=== PATIENT | female | born 1935 | race Caucasian/White ===

== ENCOUNTER 2017-04-09 18:16 | Inpatient (IN) | payer OTHER ==
[~2017-04-09] VITALS: Ht 157.5 cm; Wt 55.2 kg
[2017-04-09] VITALS: BP 116/62
--- NOTE | ~2017-04-09 | HC ---
[facility] [place] [address] CONSULTATION Name: MIGUEL ALFORD Room #: 239-P ADM IN M.R.#: [id number] Admission: 04/09/17 Attend Phys: Violeta Villalba Discharge: Date of : 34 Report #: [id number] THIS REPORT FOR: //name// CC: Chrystal Tai MD DATE OF SERVICE: 04/14/2017 REFERRING PROVIDER: Violeta Villalba MD REASON FOR CONSULTATION: Hypoxemia. CHIEF COMPLAINT: Weakness and altered mental status. HISTORY OF PRESENT ILLNESS: Our group was asked to evaluate the patient in consultation while hospitalized at [facility]. The patient was admitted on April 09, presented to the emergency department, apparently presented to her primary care provider for evaluation some generalized problems and was noted to have some worsening renal function and was subsequently sent to the emergency department. A chest x-ray revealed a right upper lobe infiltrate and some hypoxemia. The patient has subsequently been on Levaquin and aerosol treatments and has had some steady decline over the last 24 hours. The patient has a history of cerebrovascular accident with right-sided weakness and expressive aphasia, in fact often speaking only in Czech at times, has been having more confusion and left-sided neglect. She has a coarse cough according to respiratory therapy, she is having difficulty clearing the secretions. No active fevers or chills. The patient is sitting up in chair during my discussion with the daughter. Daughter provides a reasonable history. The patient is unable to communicate well, although did respond to some verbal commands during the exam. ALLERGIES: HYDROXYZINE, LABETALOL, and LORAZEPAM. PAST MEDICAL HISTORY: 1. 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 2. Hypertension. 3. Chronic renal insufficiency. 4. Hyperlipidemia. 5. Diabetes mellitus type 2. OUTPATIENT MEDICATIONS: Included Avapro, Lipitor, hydrochlorothiazide, diltiazem, hydralazine, Protonix, and insulin. [address] [address] CONSULTATION Name: MIGUEL ALFORD Room #: 239-P [facility]..#: [id number] Admission: 04/09/17 Attend Phys: Violeta Villalba Discharge: Date of : 34 Report #: [id number] CURRENT INPATIENT MEDICATIONS: 1. Levofloxacin. 2. Furosemide. 3. DuoNebs q.i.d. 4. Hydralazine 10 mg twice daily, atorvastatin 20 mg daily, Colace, Pepcid, Lopressor p.r.n., and Zosyn. SOCIAL HISTORY: The patient is an ex-smoker, quitting about 12 years ago. Lives with the daughter, disabled and elderly and disabled due to prior stroke as mentioned. FAMILY HISTORY: Unobtainable from the patient. REVIEW OF SYSTEMS: Otherwise, unobtainable from the patient due to current status. PHYSICAL EXAMINATION: VITAL SIGNS: Temperature max 37.6, temperature current 36.8, pulse 90, respiratory rate 18, blood pressure 134/46, oxygen saturation 95% on 13 liters nasal cannula. GENERAL: This is an elderly woman, in no distress, not conversant, does respond to some requests. ENT: Clear oropharynx. No thrush. NECK: Supple, no lymphadenopathy. LUNGS: Coarse, right-sided breath sounds, predominantly on the right upper, diminished bases, occasional expiratory rhonchi noted. CARDIOVASCULAR: Heart was regular. 2/6 murmur noted. ABDOMEN: Soft, nontender, no masses. EXTREMITIES: With some 1+ edema. They are warm with 2+ pulses. LABORATORY DATA: Arterial blood gas on 13 liters revealed pH 7.47, pCO2 of 30, pO2 of 70, bicarbonate 22. ProBNP is 18,550. Troponin is negative. Lactate 1.9. CBC and chemistry profile pending today. Most recent white blood cell count was 15,000, hemoglobin of 8, hematocrit 25, and platelet count 280. Yesterday, sodium 142, potassium 3.2, chloride 108, bicarbonate 20, BUN 52, creatinine 2.9, glucose 205, albumin is 2.0. Chest x-ray reveals persistent right upper lobe infiltrate, left basilar atelectasis and new right pleural effusion. IMPRESSION: 1. Acute hypoxemic respiratory failure, worsening status over the last 24 hours, suspect much of this is related to some pulmonary edema, pleural effusion, perhaps worsening pneumonia with poor airway clearance in addition to possible pulmonary embolism. Review of medications does not show that the patient has been anticoagulated with prophylactic heparin or enoxaparin. 2. Acute on chronic renal failure. [facility] [address] [place] [address] CONSULTATION Name: MIGUEL ALFORD Room #: 239-P [facility] IN M.R.#: [id number] Admission: 04/09/17 Attend Phys: Violeta Villalba Discharge: Date of : 34 Report #: [id number] 3. Pleural effusion. 4. Community-acquired pneumonia. 5. Prior cerebrovascular accident. 6. Altered mental status. The patient's mental status apparently is worse compared to 24 hours prior. SUGGEST: 1. CT head and chest without contrast. 2. Consider ventilation perfusion scan. 3. Lower extremity venous Dopplers. 4. Echo. 5. Diuresis. 6. ICU care. 7. Consider right thoracentesis. 8. Consider broadening antimicrobial coverage, we will add azithromycin and vancomycin. 9. Consider ID consult. 10. Discussed with daughter may need more aggressive care including intubation or noninvasive positive pressure ventilation as the patient is a full code at this time. 11. N.p.o. for now, but continue with speech therapy efforts. 12. More recommendations to follow. Discussed with family and Dr. Villalba. Total critical care time was 45 minutes, not including any procedures to this point. By: [id number] Clifford Castanon MD /nt
--- NOTE | ~2017-04-09 | HC ---
[facility] [place] [address] CONSULTATION Name: MIGUEL ALFORD Room #: 239-P [facility] IN ..#: [id number] Admission: 04/09/17 Attend Phys: Violeta Villalba Discharge: Date of : 34 Report #: [id number] THIS REPORT FOR: //name// CC: Chrystal Villalba DATE OF SERVICE: 04/14/2017 HISTORY OF PRESENT ILLNESS: This is an 81-year-old white female with polycystic kidney disease, with chronic kidney disease stage IV, hypertension, diabetes mellitus, prior CVA with residual mild aphasia and right hemiparesis from 12 years ago. She was admitted with worsening renal failure, had a fall with some right hip pain, but x-rays were negative. She is noted to have acute respiratory failure, hypoxic aspiration versus congestive heart failure. She has community-acquired pneumonia of right upper lobe. There is concern with her swallowing and she has been downgraded down to n.p.o. and with the decline in function, she is actually being transferred down to the Progressive Care Unit/CCU. I am seeing her in rehabilitation medicine consultation. PAST MEDICAL HISTORY: Includes the prior CVA with mild aphasia and right hemiparesis 12 years ago. Premorbid quad cane ambulator. Also includes diabetes mellitus, hyperlipidemia, GERD, hypertension, chronic kidney disease stage IV. HABITS: No history of tobacco abuse or alcohol abuse. MEDICATIONS: Please see the full medication listing. ALLERGIES: Hydroxyzine, labetalol, lorazepam. SOCIAL HISTORY: Lives in a house. There is a ramp. Premorbid community ambulator with a quad cane, lives with her daughter and son-in-law. REVIEW OF SYSTEMS: Somewhat limited. No complaints currently of abdominal discomfort or chest pain. She does have some shortness of breath. PHYSICAL EXAMINATION: GENERAL: An 81-year-old white female in no obvious distress. VITAL SIGNS: Temperature 98.3, pulse 91, respirations 18, blood pressure 134/46. NEUROLOGIC: She does have residual from her old stroke with right hemiparesis. Appears to have right visual field preference. She does have evidence of spasticity on the right side, upper and lower extremity. She is currently on 13 liters nasal cannula. There is no focal calf swelling. I did not assess her activity level at this time. [address] [address] CONSULTATION Name: MIGUEL ALFORD Room #: [address] [place] [address] IN M.R.#: [id number] Admission: 04/09/17 Attend Phys: Violeta Villalba Discharge: Date of : 34 Report #: [id number] ASSESSMENT: An 81-year-old white female with the following problem list: 1. Cerebrovascular accident with worsening of her status. She has dysphagia and is currently n.p.o. with her functional decline. 2. Premorbid right-sided spastic hemiparesis. 3. Acute respiratory failure, hypoxic, aspiration versus congestive heart failure. 4. Community-acquired pneumonia, right upper lobe. 5. Right hip pain post fall with no fractures. 6. Chronic kidney disease stage IV. 7. Diabetes mellitus. 8. Hypertension. 9. Hyperlipidemia. PLAN: The patient is currently being transferred down to the progressive care unit. We will follow along with you regarding her rehab therapy issues. She is requiring much more oxygen with her pneumonia. We will be glad to follow along with you regarding her rehab therapy needs. <ELECTRONICALLY SIGNED> By: Atif Bernal MD 04/15/17 1414 1210 0224 Atif Bernal MD /[facility]
--- NOTE | ~2017-04-09 | EKG ---
[address] [address] ELECTROCARDIOGRAM REPORT Name: MIGUEL ALFORD Room #: 239-P ADM IN M.R.#: [id number] Admission: 04/09/17 Attend Phys: Violeta Villalba Discharge: Date of : 34 Report #: [id number] THIS REPORT FOR: //name// [facility] Test Date: 2017-04-15 Test Time: 08:27:02 Pat Name: MIGUEL ALFORD Department: Room: 239 P Gender: F Truck Terminal Manager: daphne : 1935 Requested By: Vianney Najera Order Number: [id number] MD: Theodore Coelho Measurements Intervals [place] Rate: 89 P: [place]: QRS: 58 QRSD: 87 T: 59 QT: 367 QTc: 447 Interpretive Statements Atrial fibrillation Ventricular premature complex Consider left ventricular hypertrophy Compared to ECG 04/14/2017 11:39:10 Ventricular premature complex(es) now present Sinus tachycardia no longer present Electronically Signed On 04-15-2017 21:09:39 MACHINE FELLER by Theodore Coelho [email or web address] <ELECTRONICALLY SIGNED> By: Theodore Coelho MD 04/15/17 2109 6 6 Theodore Coelho MD /EPI
--- NOTE | ~2017-04-09 | HC ---
[facility] [place] [address] CONSULTATION Name: ROCÍOMIGUEL Room #: 239-P [facility] IN M.R.#: [id number] Admission: 04/09/17 Attend Phys: Violeta Villalba Discharge: 04/17/17 Date of : 34 Report #: [id number] THIS REPORT FOR: //name// CC: Chrystal Villalba DATE OF SERVICE: 04/14/2017 REASON FOR CONSULTATION: Elevated creatinine. HISTORY OF PRESENT ILLNESS: This is an 81-year-old female who was admitted 5 days ago. She originally presented based upon some abnormal lab values, but had fallen and had pain in her hip, but then ended up was found to have a right-sided pulmonary infiltrate. That pulmonary infiltrate has worsened and she now has a very rachana dense pneumonia on that right lung. She was moved to the Intensive Care Unit earlier today. Of note, her creatinine level on presentation was at 3.1, it has been at 2.9-3.1 ever since. The patient is in the ICU at this time. There is bit of a language barrier. She has a son and [id number] here who provide some information. There were also some outpatient notes available. The patient had seen Dr. Ross at [facility] in September of this year for work up. That workup included a renal ultrasound, which showed at least 20 cm kidneys bilaterally with extensive cystic replacement of normal renal parenchyma consistent with autosomal dominant polycystic kidney disease. He also documented progressively rising creatinine levels a year ago, running in the low 2 range and now more recently in the 2.6 range over the summer and she is up to 2.8 and 3.1 range during this hospitalization. She has a history of hypertension and prior to admission was on some irbesartan, but that was stopped. She is also on usually a little bit of furosemide as well as some hydralazine and diltiazem. She has had some atrial fib and hence the diltiazem. Blood pressures have been moderate during this time. She has moved into the ICU because she was a bit more obtunded and had a more dense pneumonia. 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 She also has a history of prior coronary artery disease, peripheral vascular disease with carotid involvement. She has had a previous CVA, which I think was in 2005 with some right hemiparesis and some aphasia problems. It is interesting that her son notes that she is a y[place] of [place] and had lived in this country for decades and spoke Nigerien well, but after her stroke, she is losing more and more of her ability to speak Nigerien, although she still does speak [place]. She understands both Nigerien and [place]. She also has some type 2 diabetes. MEDICATIONS ON ADMISSION: Again include irbesartan, atorvastatin, hydrochlorothiazide, diltiazem, hydralazine, pantoprazole, calcium, potassium, [address] [address] CONSULTATION Name: MIGUEL ALFORD Room #: 239-P [facility] IN M.R.#: [id number] Admission: 04/09/17 Attend Phys: Violeta Villalba Discharge: 04/17/17 Date of : 34 Report #: [id number] furosemide, and Lantus. At this time, she has been placed on antibiotics in the form of vancomycin as well as piperacillin and tazobactam, hydralazine at 10 mg b.i.d., atorvastatin 20 mg daily, DuoNeb inhaler, famotidine 10 mg b.i.d., metoprolol 5 mg q. 6 hours IV for control of her atrial fib, multiple p.r.n. medications. She no longer is on the angiotensin receptor idris. ALLERGIES: Listed to HYDROXYZINE, LABETALOL, LORAZEPAM. FAMILY HISTORY: Her son is here and is unable to tell me anymore about polycystic kidney disease in the family as he is not aware. SOCIAL HISTORY: The patient is . She lives in [place], [place]. She lives with her daughter and the daughter's family. Again, she immigrated from [place] decades ago. REVIEW OF SYSTEMS: At this time, is lethargic. She seems somewhat uncomfortable and restless. She has been somewhat dyspneic. Difficult to tell as she is not very verbal to figure out what else are her symptoms are at this time. The son states that on a normal day she is able to ambulate, she is able to take care of some of her activities of daily living including bathroom needs. She will feed herself. Also, the daughter helps with medications and some of the more complex tasks. Normally, does not have dyspnea or chest pain, nausea or vomiting. PHYSICAL EXAMINATION: GENERAL: Elderly-appearing female seen in the Intensive Care Unit. She is awake, although lethargic. VITAL SIGNS: Blood pressure 148/56, heart rate 94 and irregular, temperature 98.4, oxygen saturation 95%. HEENT: Shows pupils are equal and reactive. Sclerae nonicteric. Oral mucosa is dry. NECK: Supple. No jugular veinous distention, no adenopathy. CHEST: Shows rales and rhonchi bilaterally, fairly dense. Positioning is difficult to get a really thorough exam as far as complete location of that. HEART: An irregularly irregular rhythm with distant heart tones. ABDOMEN: Has a few bowel sounds present. Abdomen is soft. Again positioning is a problem, but I can certainly palpate the left kidney, possibly the right kidney. I do not think the liver is particularly enlarged. EXTREMITIES: Show no peripheral edema, in fact she has mildly decreased skin turgor in her legs. NEUROLOGIC: She is responsive, but mildly obtunded. LABORATORY DATA: From today, sodium 141, potassium 3.7, chloride 107, bicarbonate 19, BUN 60, creatinine 3.1, glucose 265, calcium 8.8. Troponin less than 0.04. White count 11.1, which is down from 20.9 on admission; hemoglobin 8.8; hematocrit 26.8; platelets 340,000. From admission, Urinalysis, specific [facility] [address] [place] [address] CONSULTATION Name: MIGUEL ALFORD Room #: 239-P [facility].#: [id number] Admission: 04/09/17 Attend Phys: Violeta Villalba Discharge: 04/17/17 Date of : 34 Report #: [id number] gravity 1.020, pH 5.5, 2+ protein, trace blood. Negative dipstick from today. Blood gas pH 7.47, pCO2 of 30, pO2 of 76.8. Lactate 1.94. I reviewed her chest x-ray from today, which shows a very dense right-sided infiltrate. ASSESSMENT: 1. Right-sided pneumonia, on broad spectrum antibiotics, bronchodilators, pulmonary toilet, and supplemental oxygen. She is not hypotensive nor shocky at this time. She has continued the intensive pulmonary care. 2. Autosomal dominant polycystic kidney disease. She had a recent renal ultrasound consistent with this diagnosis. Kidneys are enlarged and palpable. She is not able to communicate much with me on this, but I have spoken with the son and the [id number] at the bedside and discussed the diagnosis of autosomal dominant polycystic kidney disease, the etiology, its progression, and some of the inheritance pattern as it is certainly important for him to understand that. At this point, her polycystic kidney disease is not expected to play a substantial role in what is going on with her pneumonia or other related problems. Her renal function certainly is not great, but it is not changing rapidly. In addition, I would note she has had previous cerebral aneurysm years ago, again with increased risk of that related to her plus cyst kidneys. 3. Chronic kidney disease stage 4. This has been generally progressive over the last few years. She is at very advanced stage on autosomal dominant polycystic kidney disease and hence the worsening trend on her creatinine. At this point, she is actually dry on her volume. Electrolytes were controlled. She needs care of her pneumonia. She does not need ongoing diuresis currently. We will back off her diuretics and follow along in her care. I do not expect her creatinine to improve much. 4. Hypertension. She is currently on an IV beta idris. Once she is able to take orally, we will get her back on her angiotensin receptor idris as the GEORGIE inhibitors and ARBs are the drugs of choice for treatment of hypertension with polycystic kidney disease. 5. Atrial fibrillation, currently rate controlled. 6. Diabetes mellitus. Sugars have been high. She needs additional insulin to get that controlled. 7. Anemia. We will follow along with that. Certainly it is a problem with her severe pneumonia. PLAN: 1. I will stop her diuretics at this time. 2. Continue her IV antibiotics. 3. Continue pulmonary toilet. 4. Follow up on her labs. [facility] [address] [place] [address] CONSULTATION Name: MIGUEL ALFORD Room #: 239-P [facility] IN M.R.#: [id number] Admission: 04/09/17 Attend Phys: Violeta Villalba Discharge: 04/17/17 Date of : 34 Report #: [id number] 5. Differential resumption of her angiotensin receptor idris. 6. We will follow along the care of this patient. <ELECTRONICALLY SIGNED> By: Holden Galaviz MD 04/18/17 1046 1802 212 Celso Cordova MD /nt
--- NOTE | ~2017-04-09 | HC ---
[facility] [place] [address] CONSULTATION Name: MIGUEL ALFORD Room #: 239-P [facility] IN M.R.#: [id number] Admission: 04/09/17 Attend Phys: Violeta Villalba Discharge: 04/17/17 Date of : 34 Report #: [id number] THIS REPORT FOR: //name// CC: Chrystal Villalba ATTENDING PHYSICIAN: Violeta Villalba MD REASON FOR CONSULTATION: Pneumonia. HISTORY OF PRESENT ILLNESS: This is an 81-year-old white woman hospitalized at [facility] on April 09, with respiratory failure, diagnosed to have right-sided pneumonia, currently on treatment with vancomycin and Zosyn. The patient is unaroused somehow. The patient's family at bedside, trying to decide how to approach her end of life care. The patient is not arousable, family provides some information regarding her past medical history. DRUG ALLERGIES: LORAZEPAM, LABETALOL, and HYDROXYZINE. PAST MEDICAL HISTORY: CVA, right-sided weakness, hypertension, chronic kidney disease, dyslipidemia, diabetes mellitus type 2, right-sided pneumonia, and respiratory failure, on BiPAP. MEDICATIONS: The patient is currently on dextrose at 1000 mL IV every 12 hours, morphine sulfate 2 mg IV p.r.n., vancomycin 500 mg IV daily, enoxaparin 60 mg subQ daily, hydralazine 10 mg IV b.i.d., insulin lispro per sliding scale, docusate at bedtime, atorvastatin 20 mg at bedtime, Atrovent and albuterol inhalation treatments every 4 hours, Zosyn 2.25 grams IV every 6 hours, metoprolol tartrate IV 5 mg as needed, ondansetron, p.r.n., glucose glucagon p.r.n., and acetaminophen p.r.n. FAMILY HISTORY: See H and P, old records. REVIEW OF SYSTEMS: Unable to obtain. PHYSICAL EXAMINATION: GENERAL: Elderly, chronically and acutely ill, unresponsive woman. VITAL SIGNS: Temperature 97.6, pulse 89-157, respirations 21-36, BP 122/92, the patient is on BiPAP, FiO2 100%, and saturations 100%. HEENMT: Not quite able to examine because of BiPAP. NECK: Supple. LUNGS: Crackles right lung tee. HEART: S1, S2. No gallop. ABDOMEN: Soft, no masses or megaly. PELVIC: Deferred. RECTAL: Deferred. EXTREMITIES: No clubbing or cyanosis. [facility] [address] [place] [address] CONSULTATION Name: MIGUEL ALFORD Room #: [facility].#: [id number] Admission: 04/09/17 Attend Phys: Violeta Villalba Discharge: 04/17/17 Date of : 34 Report #: [id number] NEUROLOGIC: Unable to evaluate. LABORATORY DATA: Cultures remain negative at the time of this dictation. Sodium 153, potassium 3.9, CO2 of 20, BUN 70, creatinine 3.4, glucose 241. Albumin 1.9. WBC 20,000, hemoglobin 7.9 g/dL, platelets 333,000. MRSA screen negative. Urinalysis revealed pyuria and bacteriuria. The urine culture revealed E. coli sensitive to all tested antibiotics. ABGs yesterday revealed pH 7.49, pCO2 25, pO2 71, bicarbonate 19, lactate 1.57. These set of gases is on nasal O2, 13 liters per minute. RADIOLOGY EVALUATION: The chest x-ray revealed atelectasis, pneumonia, right lung; vascular congestion. ASSESSMENT: 1. Extensive right-sided pneumonia, undetermined organism. 2. Respiratory failure, on BiPAP. 3. Chronic kidney disease. 4. History of cerebrovascular accident. SUGGESTIONS AND RECOMMENDATIONS: First of all, we have to see what the family wishes regarding end of life care for this patient might be. I suspect they are leaning the reaction of comfort care. For time being, recommend continuation of treatment with vancomycin and Zosyn, but survival of this person is doubtful. Dr. Villalba, thank you for requesting my suggestions in the care of your patient. <ELECTRONICALLY SIGNED> By: Douglas Coelho MD 04/17/17 1021 1041 1705 Douglas Coelho MD /nt
--- NOTE | ~2017-04-09 | 2DMMODE ---
[facility] [address] [place] [address] 2 D/M-MODE ECHOCARDIOGRAM Name: MIGUEL ALFORD Room #: 239-P ADM IN .R.#: [id number] Admission: 04/09/17 Attend Phys: Violeta Weber Discharge: Date of : 33 Date of Service: 04/14/17 1539 Report #: [id number] THIS REPORT FOR: //name// APPROVED REPORT Study performed: 04/14/2017 13:31:34 EXAM: Comprehensive 2D, Doppler, and color-flow Echocardiogram Patient Location: ICU Room #: 239 Status: routine BSA: 1.59 HR: 91 bpm BP: 134/46 mmHg Rhythm: Irregular. Other Information Study Quality: Good/no patient cooperation. Indications Respiratory failure, CHF. Hx: CAD, HTN, HLP, DM, CVA 2D Dimensions RVDd: 33.56 mm LVEF(%): 48.22 (>50%) IVSd: 13.12 (7-11mm) LVOT Diam: 19.02 (18-24mm) LVDd: 37.50 mm PWd: 12.14 (7-11mm) Ascending Ao: 33.18 (22-36mm) LVDs: 28.58 (25-40mm) Aortic Root: 30.87 mm Pitts's LVEF: 48.22 % Volumes Left Atrial Volume (Systole) Single Plane 4CH: 77.35 mL Single Plane 2CH: 75.36 mL LA ESV Index: 52.00 mL/m2 Aortic Valve AoV Peak Kobe.: 3.59 m/s AO Peak Gr.: 51.61 mmHg LVOT Max P.25 mmHg AO Mean Gr.: 29.68 mmHg AO V2 Mean: 2.66 m/s LVOT Max V: 1.43 m/s AO V2 VTI: 79.60 cm BETHEL Vmax: 1.13 cm2 Mitral Valve [facility] [place] [address] 2 D/M-MODE ECHOCARDIOGRAM Name: MIGUEL ALFORD Room #: 239-P [facility] IN ..#: [id number] Admission: 04/09/17 Attend Phys: Violeta Weber Discharge: Date of : 33 Date of Service: 04/14/17 1539 Report #: [id number] E/A Ratio: 1.0 MV Decel. Time: 185.30 ms MV E Max Kobe.: 1.58 m/s MV A Kobe.: 1.55 m/s MV PHT: 53.74 ms IVRT: 73.82 ms Pulmonary Valve PV Peak Kobe.: 1.56 m/s PV Peak Gr.: 9.79 mmHg Pulmonary Vein P Vein S: 0.80 m/s P Vein D: 0.60 m/s P Vein S/D Ratio: 1.33 Tricuspid Valve TR Peak Kobe.: 3.57 m/s RAP Estimate: 10.00 mmHg TR Peak Gr.: 51.12 mmHg PA Pressure: 61.00 mmHg Left Ventricle The left ventricle is normal size. Mild concentric left ventricular hypertrophy. Left ventricular systolic function is mildly decreased. Hypokinesis of distal septum, distal inferior wall, and apex. LVEF is 45%. This study is not technically sufficient to allow evaluation of the LV diastolic function due to arrhythmia. Right Ventricle The right ventricle is normal size. The right ventricular systolic function is normal. Atria Left atrium is dilated. Right atrium is at the upper limits of normal. Aortic Valve Aortic valve is moderately calcified. Trace aortic regurgitation. There is moderate valvular aortic stenosis. Calculated aortic valve area is 1.2 cm2 with an average maximum pressure gradient of 48 mmHg and average mean pressure gradient of 27 mmHg. Mitral Valve Mitral valve leaflets are thickened. Moderate mitral annular calcification. Moderate mitral regurgitation. No evidence of mitral valve stenosis. [facility] [address] [place] [address] 2 D/M-MODE ECHOCARDIOGRAM Name: MIGUEL ALFORD Room #: 239-P [facility] IN .R.#: [id number] Admission: 04/09/17 Attend Phys: Violeta Weber Discharge: Date of : 33 Date of Service: 04/14/17 1539 Report #: [id number] Tricuspid Valve The tricuspid valve is normal in structure. Mild tricuspid regurgitation. Estimated PAP is 60mmHg. Pulmonic Valve The pulmonary valve is normal in structure. Trace pulmonic regurgitation. Great Vessels The aortic root is normal in size. The ascending aorta is normal in size. IVC is dilated and collapses <50% with inspiration. Pericardium There is no pericardial effusion. <Conclusion> Left ventricular systolic function is mildly decreased. Hypokinesis of distal septum, distal inferior wall, and apex. LVEF is 45%. Left atrium is dilated. Aortic valve is moderately calcified. There is moderate valvular aortic stenosis. Calculated aortic valve area is 1.2 cm2; maximum pressure gradient of 48 mmHg, mean pressure gradient of 27 mmHg. Mitral valve leaflets are thickened. Moderate mitral annular calcification. Moderate mitral regurgitation. Pulmonary artery pressure of 60mmHg There is no pericardial effusion. <ELECTRONICALLY SIGNED> By: Chase Adhikari MD, FACC 04/14/17 1539 1539 1539 Chase Adhikari MD, FACC /INF
--- NOTE | ~2017-04-09 | EKG ---
[address] [address] ELECTROCARDIOGRAM REPORT Name: ROCÍOMIGUEL Quiana Room #: 239-P ADM IN M.R.#: [id number] Admission: 04/09/17 Attend Phys: Violeta Villalba Discharge: Date of : 33 Report #: [id number] THIS REPORT FOR: //name// [facility] Test Date: 2017-04-14 Test Time: 11:39:10 Pat Name: MIGUEL ALFORD Department: Room: 239 Gender: F Education Adviser: Esther SORIANO : 1935 Requested By: Violeta Villalba Order Number: [id number] MD: Theodore Coelho Measurements Intervals [place] Rate: 103 P: 115 HI: 182 QRS: 32 QRSD: 86 T: 62 QT: 345 QTc: 452 Interpretive Statements Sinus tachycardia Left ventricular hypertrophy Compared to ECG 10/22/2005 15:07:50 Left ventricular hypertrophy now present Sinus rhythm no longer present ST (T wave) deviation still present Myocardial infarct finding still present Electronically Signed On 04-14-2017 18:25:04 SHIFTMAN by Theodore Coelho [email or web address] <ELECTRONICALLY SIGNED> By: Theodore Coelho MD 04/14/17 1825 1139 1139 Theodore Coelho MD /EPI
[~2017-04-09 18:16] MED LIST: ACTONEL 150 MG150 MG PO; AVAPRO300 MG PO; DILTIAZEM ER360 MG PO; HYDROCHLOROTHIA25 M1 PO; LIPITOR20 MG PO; LOPRESSOR 50 MG50 M1 PO
[2017-04-09 18:17] VITALS: BP 138/44
[2017-04-09] MEDS ORDERED: PROTONIX40 M1 PO (18:35)
[2017-04-09] MEDS ORDERED: TUMS PO (18:35)
[2017-04-09] MEDS ORDERED: ZANTAC 150MG T150 MG PO (18:35)
[2017-04-09] MEDS ORDERED: HYDRALAZINE 10M10 MG PO (18:35)
[2017-04-09] MEDS ORDERED: LANTUS100 UNIT/M SUBQ (18:36)
[2017-04-09] MEDS ORDERED: KLOR-CON 1010 MEQ PO (18:36)
[2017-04-09] MEDS ORDERED: LASIX 20 MG TAB20 MG PO (18:36)
[2017-04-09 19:15] LABS: HEMATOCRIT 29.4 % (37.0-47.0); HEMOGLOBIN 9.7 gm/dL (12.0-15.0); MCH 27.4 pg (26.0-34.0); PLATELET COUNT 372 thou/uL (150-400); RBC 3.55 mil/uL (4.20-5.00); RDW 16.3 % (10.5-14.5); WBC 20.9 thou/uL (4.0-11.0)
[2017-04-09 19:16] LABS: MANUAL DIFF YES
[2017-04-09 19:24] LABS: CALCIUM 9.1 mg/dL (8.5-10.1); CREATININE 3.1 mg/dL (0.6-1.0); POTASSIUM 4.2 mmol/L (3.5-5.1)
[2017-04-09 19:29] LABS: TOTAL BILIRUBIN 0.4 mg/dL (<0.1-1.0)
[2017-04-09 19:36] LABS: URINE BILIRUBIN NEGATIVE (Negative); URINE BLOOD TRACE (Negative); URINE COLOR YELLOW; URINE GLUCOSE-RANDOM* NEGATIVE (Negative); URINE KETONES NEGATIVE (Negative); URINE LEUKOCYTES-REFLEX NEGATIVE (Negative); URINE PROTEIN (DIPSTICK) 2+ (Negative); URINE UROBILINOGEN 0.2 E.U./dl (0.2-1.0)
[2017-04-09 19:44] LABS: CRYSTALS None Seen /LPF (None Seen); SQUAMOUS None Seen /LPF (0-3)
[2017-04-09 19:45] LABS: CASTS None Seen /LPF (None Seen); URINE RBC None Seen /HPF (0-2); URINE WBC-REFLEX None Seen /HPF (0-5)
[2017-04-09 20:01] LABS: ANISOCYTOSIS 1+; TOTAL CELL COUNT 100
[2017-04-09 20:02] LABS: HYPOCHROMASIA SLIGHT
[2017-04-09 20:17] VITALS: BP 127/39
[2017-04-09 20:44] VITALS: BP 127/39
[2017-04-09 21:43] VITALS: BP 142/55
[2017-04-10 04:51] VITALS: BP 144/65
[2017-04-10 06:36] LABS: HEMATOCRIT 25.9 % (37.0-47.0); HEMOGLOBIN 8.5 gm/dL (12.0-15.0); MCH 27.3 pg (26.0-34.0); MCHC 32.6 g/dL (28.0-37.0); MCV 83.6 fL (80.0-100.0); RBC 3.1 mil/uL (4.20-5.00); RDW 16.4 % (10.5-14.5); WBC 21.1 thou/uL (4.0-11.0)
[2017-04-10 06:51] LABS: CALCIUM 8.8 mg/dL (8.5-10.1); CREATININE 2.9 mg/dL (0.6-1.0); POTASSIUM 3.6 mmol/L (3.5-5.1)
[2017-04-10 16:31] VITALS: BP 142/54
[2017-04-10 19:51] VITALS: BP 155/58
[2017-04-11 03:40] VITALS: BP 124/42
[2017-04-11 06:18] LABS: HEMATOCRIT 25.3 % (37.0-47.0); HEMOGLOBIN 8.3 gm/dL (12.0-15.0); MCH 27.4 pg (26.0-34.0); MCHC 32.7 g/dL (28.0-37.0); MCV 83.8 fL (80.0-100.0); PLATELET COUNT 261 thou/uL (150-400); RBC 3.02 mil/uL (4.20-5.00); WBC 18.3 thou/uL (4.0-11.0)
[2017-04-11 06:24] LABS: MANUAL DIFF YES
[2017-04-11 06:30] LABS: ALBUMIN 2.4 g/dL (3.4-5.0); CALCIUM 8.5 mg/dL (8.5-10.1); CREATININE 2.9 mg/dL (0.6-1.0); PHOSPHORUS 3.5 mg/dL (2.5-4.9); POTASSIUM 3.8 mmol/L (3.5-5.1)
[2017-04-11 07:07] VITALS: BP 135/54
[2017-04-11 07:13] LABS: ABSOLUTE NEUTROPHILS 16.5 thou/uL (1.4-8.2); ANISOCYTOSIS 1+; ATYPICAL LYMPHS 1 %; TOTAL CELL COUNT 100
[2017-04-11 16:41] VITALS: BP 143/77
[2017-04-11 19:21] VITALS: BP 149/58
[2017-04-12 03:26] LABS: HEMATOCRIT 23.8 % (37.0-47.0); HEMOGLOBIN 7.7 gm/dL (12.0-15.0); MCH 26.9 pg (26.0-34.0); MCHC 32.2 g/dL (28.0-37.0); MCV 83.5 fL (80.0-100.0); RBC 2.86 mil/uL (4.20-5.00); RDW 16.6 % (10.5-14.5); WBC 15.9 thou/uL (4.0-11.0)
[2017-04-12 04:16] VITALS: BP 123/50
[2017-04-12 08:00] VITALS: BP 142/57
[2017-04-12 16:00] VITALS: BP 145/73
[2017-04-12 19:31] VITALS: BP 114/68
[2017-04-13 06:16] LABS: HEMATOCRIT 25.1 % (37.0-47.0); HEMOGLOBIN 8.1 gm/dL (12.0-15.0); MCHC 32.3 g/dL (28.0-37.0); MCV 83.3 fL (80.0-100.0); RBC 3.01 mil/uL (4.20-5.00); RDW 16.7 % (10.5-14.5); WBC 14.7 thou/uL (4.0-11.0)
[2017-04-13 06:17] VITALS: BP 117/52
[2017-04-13 06:34] LABS: CALCIUM 8.5 mg/dL (8.5-10.1); CREATININE 2.9 mg/dL (0.6-1.0); PHOSPHORUS 2.8 mg/dL (2.5-4.9); POTASSIUM 3.2 mmol/L (3.5-5.1)
[2017-04-13 08:00] VITALS: BP 145/53
[2017-04-13 16:00] VITALS: BP 141/53
[2017-04-13 19:25] VITALS: BP 148/67
[2017-04-13 19:34] VITALS: BP 139/42
[2017-04-14] VITALS (18 sets, daily range): BP systolic 118–179; BP diastolic 44–161
[2017-04-14 12:10] LABS: ABG SAMPLE TYPE ARTERIAL; BE(vivo) -1.5 mmol/L (-2 to +3); HCO3 21.5 mmol/L (22.0-26.0); LACTATE 1.94 mmol/L (0.5-2.0); O2(CT) 12.1 mL/dL (15.0-23.0); O2Hb 94.7 % (92.0-98.0); PO2 76.8 mmHg (80.0-100.0); pH 7.474 (7.360-7.450); sO2 96.3 % (92.0-98.0); tCO2 22.5 mmol/L (24.0-30.0)
[2017-04-14 12:11] LABS: STICK SITE L.BRACHIAL
[2017-04-14 13:08] LABS: HEMATOCRIT 26.8 % (37.0-47.0); HEMOGLOBIN 8.8 gm/dL (12.0-15.0); MCH 27.4 pg (26.0-34.0); MCHC 32.9 g/dL (28.0-37.0); MCV 83.5 fL (80.0-100.0); RBC 3.21 mil/uL (4.20-5.00); RDW 16.2 % (10.5-14.5); WBC 11.1 thou/uL (4.0-11.0)
[2017-04-14 13:16] LABS: CALCIUM 8.8 mg/dL (8.5-10.1); CREATININE 3.1 mg/dL (0.6-1.0); POTASSIUM 3.7 mmol/L (3.5-5.1)
[2017-04-14 17:54] LABS: URINE BILIRUBIN NEGATIVE (Negative); URINE BLOOD 1+ (Negative); URINE COLOR YELLOW; URINE GLUCOSE-RANDOM* TRACE (Negative); URINE KETONES NEGATIVE (Negative); URINE NITRITE NEGATIVE (Negative); URINE PROTEIN (DIPSTICK) 1+ (Negative); URINE UROBILINOGEN 0.2 E.U./dl (0.2-1.0)
[2017-04-14 18:11] LABS: CASTS None Seen /LPF (None Seen); CRYSTALS None Seen /LPF (None Seen); SQUAMOUS None Seen /LPF (0-3); TRANSITIONAL EPITHEL CELL 0-3 Few /LPF (None Seen); URINE RBC 0-2 Rare /HPF (0-2); URINE WBC >25 Many /HPF (0-5)
[2017-04-15] VITALS (24 sets, daily range): BP systolic 101–173; BP diastolic 41–128
[2017-04-15 05:24] LABS: ABG SAMPLE TYPE ARTERIAL; HCO3 19.3 mmol/L (22.0-26.0); LACTATE 1.57 mmol/L (0.5-2.0); O2(CT) 12.2 mL/dL (15.0-23.0); PCO2 25.5 mmHg (35.0-45.0); pH 7.497 (7.360-7.450); sO2 95.8 % (92.0-98.0); tCO2 20.1 mmol/L (24.0-30.0)
[2017-04-15 05:25] LABS: STICK SITE R.BRACHIAL
[2017-04-15 05:32] LABS: HEMATOCRIT 24.1 % (37.0-47.0); HEMOGLOBIN 8.2 gm/dL (12.0-15.0); MCH 27.7 pg (26.0-34.0); MCHC 33.9 g/dL (28.0-37.0); MCV 81.9 fL (80.0-100.0); RBC 2.95 mil/uL (4.20-5.00); RDW 16.4 % (10.5-14.5); WBC 12.1 thou/uL (4.0-11.0)
[2017-04-15 05:41] LABS: ALBUMIN 2.1 g/dL (3.4-5.0); CALCIUM 8.8 mg/dL (8.5-10.1); CREATININE 2.9 mg/dL (0.6-1.0); PHOSPHORUS 3.5 mg/dL (2.5-4.9)
[2017-04-15 09:46] LABS: INR 1.1
[2017-04-16] VITALS (34 sets, daily range): BP systolic 60–155; BP diastolic 31–106
[2017-04-16 05:00] LABS: HEMATOCRIT 24.7 % (37.0-47.0); HEMOGLOBIN 7.9 gm/dL (12.0-15.0); MCH 26.9 pg (26.0-34.0); RBC 2.94 mil/uL (4.20-5.00); RDW 16.5 % (10.5-14.5)
[2017-04-16 05:10] LABS: ALBUMIN 1.9 g/dL (3.4-5.0); CALCIUM 9.1 mg/dL (8.5-10.1); CREATININE 3.4 mg/dL (0.6-1.0); PHOSPHORUS 6.2 mg/dL (2.5-4.9); POTASSIUM 3.9 mmol/L (3.5-5.1)
== END 2017-04-17 02:36 | DRG 177 ==
LOC: ER 18:16 → EROBS 20:00 → 4S 20:00 → ICU 04-14 13:21
PROVIDERS: Hospitalist; Internal Medicine Pulmonary Disease; Nurse Practitioner Family; Physician Assistant
PROC: 02HV33Z Insertion of Infusion Device into Superior Vena Cava, Percutaneous Approach (ICD-10-PCS; principal; 2017-04-14)
PROC: 5A09357 Assistance with Respiratory Ventilation, Less than 24 Consecutive Hours, Continuous Positive Airway Pressure (ICD-10-PCS; 2017-04-15)
DX: J69.0 Pneumonitis due to inhalation of food and vomit (principal); E43 Unspecified severe protein-calorie malnutrition; J96.01 Acute respiratory failure with hypoxia; G93.40 Encephalopathy, unspecified; N18.4 Chronic kidney disease, stage 4 (severe); N17.9 Acute kidney failure, unspecified; J90 Pleural effusion, not elsewhere classified; E87.0 Hyperosmolality and hypernatremia; I69.351 Hemiplegia and hemiparesis following cerebral infarction affecting right dominant side; I13.0 Hypertensive heart and chronic kidney disease with heart failure and stage 1 through stage 4 chronic kidney disease, or unspecified chronic kidney disease; I25.10 Atherosclerotic heart disease of native coronary artery without angina pectoris; E11.51 Type 2 diabetes mellitus with diabetic peripheral angiopathy without gangrene; I48.91 Unspecified atrial fibrillation; D64.9 Anemia, unspecified; Z51.5 Encounter for palliative care; K21.9 Gastro-esophageal reflux disease without esophagitis; E78.00 Pure hypercholesterolemia, unspecified; Z66 Do not resuscitate; I50.9 Heart failure, unspecified; I35.0 Nonrheumatic aortic (valve) stenosis; D72.829 Elevated white blood cell count, unspecified; Z68.22 Body mass index [BMI] 22.0-22.9, adult; Z88.8 Allergy status to other drugs, medicaments and biological substances; Z87.891 Personal history of nicotine dependence; I69.320 Aphasia following cerebral infarction; Z79.899 Other long term (current) drug therapy
CPT/HCPCS: 10078; 10100; 27000